=== PATIENT | male | born 1990 | race Caucasian/White ===

== ENCOUNTER 2016-06-11 02:11 | Emergency (ER) | payer SELFPAY ==
[2016-06-11] MEDS ORDERED: NORMAL SALINE 1000 ML 1,000 ML IV ONE (03:28)
[2016-06-11] MEDS ORDERED: ONDANSETRON HCL INJ/PF 4 MG/2 ML SDV IV ONE (03:36)
[2016-06-11] MEDS ORDERED: MECLIZINE HCL 25 MG TABLET PO ONE (03:36)
--- NOTE | 2016-06-11 03:39 | ER Document Report ---
ED General - General Chief Complaint: Vision Problem Stated Complaint: VOMITING AND DOUBLE VISION Time seen by provider: 03:35 Notes: Patient is a 25-year-old male that comes emergency department for chief complaint of feeling lightheaded, unsteady, feeling dizzy, he states that sometimes he feels like he is seeing double, he states that he has had trouble sleeping and not felt well for the past 3 days. States he feels nauseated. He states he felt chilled but denies vomiting, he denies head injury, he denies fever. Patient denies neck pain, abdominal pain, he states he does not have a headache at this time. Past medical history of thoracic kyphosis, states he is on pain management with oxycodone for this, denies any other medications or any other medical history. TRAVEL OUTSIDE OF THE [place] IN LAST 30 DAYS: No - Related Data Allergies/Adverse Reactions: haloperidol [Haloperidol] Allergy (Unknown, Verified 01/25/16 14:35) Past Medical History - General Information source: Patient - Social History Smoking Status: Current Every Day Smoker Chew tobacco use (# tins/day): No Frequency of alcohol use: None Drug Abuse: None Lives with: Family Family History: Reviewed & Not Pertinent Patient has suicidal ideation: No Patient has homicidal ideation: No Renal/ Medical History: Denies: Hx Peritoneal Dialysis Musculoskeltal Medical History: 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 Psychiatric Medical History: Reports: Hx Depression Past Surgical History: Reports: Hx Cholecystectomy, Hx Orthopedic Surgery - hand - Immunizations Immunizations up to date: Yes Hx Diphtheria, Pertussis, Tetanus Vaccination: Yes - 2013 Review of Systems - Review of Systems Constitutional: See HPI EENT: See HPI Cardiovascular: See HPI Respiratory: No symptoms reported Gastrointestinal: No symptoms reported Genitourinary: No symptoms reported Male Genitourinary: No symptoms reported Musculoskeletal: No symptoms reported Skin: No symptoms reported Hematologic/Lymphatic: No symptoms reported Neurological/Psychological: See HPI Physical Exam - Vital signs Vitals: Temp Pulse Resp BP Pulse Ox 97.3 F 80 18 122/70 98 06/11/16 02:18 06/11/16 02:18 06/11/16 02:18 06/11/16 02:18 06/11/16 02:18 Interpretation: Normal - General In distress: None - Patient appears tired with bags under his eyes, otherwise unremarkable and in no distress - HEENT Head: Normocephalic, Atraumatic Eyes: Normal Conjunctiva: Normal Extraocular movements intact: Yes Eyelashes: Normal Pupils: PERRL Nasal: Normal Mouth/Lips: Normal Mucous membranes: Normal Pharynx: Normal Neck: Normal - Respiratory Respiratory status: No respiratory distress Chest status: Nontender Breath sounds: Normal Chest palpation: Normal - Cardiovascular Rhythm: Regular. No: Tachycardia Heart sounds: Normal auscultation, S1 appreciated, S2 appreciated Murmur: No - Abdominal Inspection: Normal Distension: No distension Bowel sounds: Normal Tenderness: Nontender. No: Tender, Guarding Organomegaly: No organomegaly - Back Back: Normal, Nontender. No: Tender - Extremities General upper extremity: Normal inspection, Nontender, Normal color, Normal ROM , Normal temperature General lower extremity: Normal inspection, Nontender, Normal color, Normal ROM , Normal temperature, Normal weight bearing. No: Stehpen's sign - Neurological Neuro grossly intact: Yes Cognition: Normal Orientation: AAOx4 [place]on Coma Scale Eye Opening: Spontaneous [place]on Coma Scale Verbal: Oriented Ober[place] Coma Scale Motor: Obeys Commands Oberon Coma Scale Total: 15 Speech: Normal Cranial nerves: Normal Cerebellar coordination: Normal Motor strength normal: LUE, RUE, LLE, RLE Additional motor exam normals: Equal accountant cost Sensory: Normal - Psychological Associated symptoms: Normal affect, Normal mood - Skin Skin Temperature: Warm Skin Moisture: Dry Skin Color: Normal Course - Re-evaluation Re-evalutation: Patient with no double vision or visual deficits on my examination, has bags under his eyes and appears to be tired. Patient is slightly anxious as well, speaking rapidly and emotionally. Denies SI or HI, states he is just desperate to sleep and he is very tired. Normal neurological exam. Patient hydrated, given medications, afterwards he was asleep, after awaking he states he feels much improved. Patient no longer states he feels difficulty focusing or imbalance. Patient denying any nausea. CBC unremarkable, chemistry attempted to get more than once but unsuccessful, patient now stating he is asymptomatic and wanting to go home. Provide with Vistaril to help him sleep. Advised to follow-up with primary care and return for any concerning symptoms such as headache, visual changes, neurological deficits, etc. Patient states understanding and agreement. - Vital Signs Vital signs: Temp Pulse Resp BP Pulse Ox 97.3 F 66 16 113/77 99 06/11/16 02:18 06/11/16 06:12 06/11/16 06:12 06/11/16 06:12 06/11/16 06:12 - Laboratory Result Diagrams: 06/11/16 04:19 06/11/16 04:19 Laboratory results interpreted by me: 06/11/16 04:19 Seg Neutrophils % 39.7 L Lymphocytes % 47.6 H Discharge - Discharge Clinical Impression: Nausea, Lightheadedness Insomnia Qualifiers: Insomnia type: unspecified Qualified Code(s): G47.00 - Insomnia, unspecified Condition: Stable Disposition: HOME, SELF-CARE Additional Instructions: Your workup does not show any concerning or emergent abnormalities. Take Zofran given if needed for nausea, take the Vistaril to help you sleep. Follow-up with primary care. Return to the emergency department for any concerning symptoms. Prescriptions: Hydroxyzine Pamoate [Vistaril 25 mg Capsule] 1 - 2 cap PO ASDIR PRN #20 capsule PRN Reason:
[2016-06-11] MEDS ORDERED: LORAZEPAM INJ 2 MG/1 ML VIAL IV ONE (04:36)
[2016-06-11 04:50] LABS: ABSOLUTE EOSINOPHILS # (AUTO) 0.2 10^3/uL (0.0-0.6); ABSOLUTE LYMPHOCYTES (AUTO) 3.1 10^3/uL (0.5-4.7); ABSOLUTE MONOCYTES (AUTO) 0.5 10^3/uL (0.1-1.4); ABSOLUTE NEUT (AUTO) 2.6 10^3/uL (1.7-8.2); BASOPHILS % (AUTO) 0.7 % (0-2); EOSINOPHILS % (AUTO) 3.7 % (0-6); HEMATOCRIT 46.3 % (37.9-51.0); HEMOGLOBIN 16.2 g/dL (13.5-17.0); HGB HCT DIFFERENCE 2.3; LYMPHOCYTES % (AUTO) 47.6 % (13-45); MEAN CORPUSCULAR HEMOGLOBIN 30.3 pg (27.0-33.4); MEAN CORPUSCULAR VOLUME 87 fl (80-97); MONOCYTES % (AUTO) 8.3 % (3-13); RED BLOOD COUNT 5.34 10^6/uL (4.35-5.55); RED CELL DISTRIBUTION WIDTH 13.1 % (11.5-14.0); SEGMENTED NEUTROPHILS % (AUTO) 39.7 % (42-78); WHITE BLOOD COUNT 6.4 10^3/uL (4.0-10.5)
[2016-06-11] MEDS ORDERED: ONDANSETRON ODT 4 MG TAB (6 TAB/DSPK) PO PRN (05:54)
[2016-06-11] MEDS ORDERED: HYDROXYZINE PAMOATE 25 MG CAPSULE #4 (ER DISP) PO PRN (05:54)
[2016-06-11 06:13] VITALS: BP 113/77
== END 2016-06-11 06:14 | disposition home or self-care (01) ==
LOC: ER 02:11
DX: R42 Dizziness and giddiness (principal); G47.00 Insomnia, unspecified; R11.0 Nausea; R68.83 Chills (without fever); M40.204 Unspecified kyphosis, thoracic region; F17.200 Nicotine dependence, unspecified, uncomplicated; F41.9 Anxiety disorder, unspecified; Z79.891 Long term (current) use of opiate analgesic; Z88.8 Allergy status to other drugs, medicaments and biological substances
CPT/HCPCS: 99284; 96361; 96374; 96375; 36415; 85025; J3490; J2060; J2405; J7030

== ENCOUNTER 2016-11-26 13:32 | Emergency (ER) | payer SELFPAY ==
[2016-11-26] MEDS ORDERED: LIDOCAINE 1% INJ-PF (10 MG/ML) 30 ML SDV INJ ONE (14:37)
[2016-11-26] MEDS ORDERED: DOXYCYCLINE HYCLATE 100 MG TABLET PO ONE (14:45)
--- NOTE | 2016-11-26 14:45 | ER Document Report ---
ED Skin Rash/Insect Bite/Abscs - General Chief Complaint: Skin Problem Stated Complaint: SORES ON SKIN Time Seen by Provider: 11/26/16 14:19 Mode of Arrival: Ambulatory Information source: Patient Notes: Patient is a 25-year-old male who presents to the ER today for 1 week of redness , swelling to the right arm and left knee. Patient has no history of MRSA but does have a history of staph infection but has never had to have an incision and drainage of an abscess before. He denies any IV drug use, fever, chills, drainage from the area although he did try to "pop them" yesterday on his own. TRAVEL OUTSIDE OF THE [place] IN LAST 30 DAYS: No - Related Data Allergies/Adverse Reactions: haloperidol [Haloperidol] Allergy (Unknown, Verified 11/26/16 13:36) Home Medications: Current Home Medications Hydrocodone/Acetaminophen [[place] 5-325 mg Tablet] 1 tab PO TID 11/26/16 [History ] Past Medical History - General Information source: Patient - Social History Smoking Status: Current Every Day Smoker Chew tobacco use (# tins/day): No Frequency of alcohol use: None Drug Abuse: None Family History: Reviewed & Not Pertinent Renal/ Medical History: Denies: Hx Peritoneal Dialysis Musculoskeltal Medical History: 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 Psychiatric Medical History: Reports: Hx Depression Past Surgical History: Reports: Hx Cholecystectomy, Hx Orthopedic Surgery - R hand - Immunizations Immunizations up to date: Yes Hx Diphtheria, Pertussis, Tetanus Vaccination: Yes - 2013 Review of Systems - Review of Systems Constitutional: No symptoms reported EENT: No symptoms reported Cardiovascular: No symptoms reported Respiratory: No symptoms reported Gastrointestinal: No symptoms reported Genitourinary: No symptoms reported Male Genitourinary: No symptoms reported Musculoskeletal: No symptoms reported Skin: See HPI Hematologic/Lymphatic: No symptoms reported Neurological/Psychological: No symptoms reported Physical Exam - Vital signs Vitals: Temp Pulse Resp BP Pulse Ox 97.8 F 75 18 140/79 H 100 11/26/16 13:36 11/26/16 13:36 11/26/16 13:36 11/26/16 13:36 11/26/16 13:36 - Notes Notes: PHYSICAL EXAMINATION: GENERAL: Well-appearing and in no acute distress. HEAD: Atraumatic, normocephalic. EYES: Pupils equal round and reactive to light, extraocular movements intact, sclera anicteric, conjunctiva are normal. NECK: Normal range of motion, supple without lymphadenopathy LUNGS: CTAB and equal. No wheezes rales or rhonchi. HEART: Regular rate and rhythm without murmurs ABDOMEN: Soft, no tenderness. No guarding, no rebound BACK: no vertebral tenderness, normal ROM GI/: no CVA tenderness EXTREMITIES: Normal range of motion, no pitting edema. No cyanosis. NEUROLOGICAL: Cranial nerves grossly intact. Normal sensory/motor exams. PSYCH: Normal mood, normal affect. SKIN: Warm, Dry, normal turgor, erythema and edema to anterior left knee over patella, tender, no fluctuance or induration, approximately 3cm in diameter, right forearm with 1cm in diameter area of erythema with fluctuance and tenderness Course - Vital Signs Vital signs: Temp Pulse Resp BP Pulse Ox 97.8 F 75 18 140/79 H 100 11/26/16 13:36 11/26/16 13:36 11/26/16 13:36 11/26/16 13:36 11/26/16 13:36 Procedures - Incision and Drainage Left Knee Time completed: 15:40 Type: Simple Anesthetic type: 1% Lidocaine mL's of anesthetic: 3 Blade size: 11 I&D procedure: Betadine prep applied Incision Method: Incision made by scalpel Amount/type of drainage: blood Adult Front & Back picture: 1 - abscess Right Distal Arm Time completed: 15:41 Type: Simple Anesthetic type: 1% Lidocaine mL's of anesthetic: 2 Blade size: 11 I&D procedure: Betadine prep applied Incision Method: Incision made by scalpel Amount/type of drainage: blood and pus Adult Front & Back picture: 1 - abscess Discharge - Discharge Clinical Impression: Abscess Condition: Stable Disposition: HOME, SELF-CARE Instructions: Post Incision and Drainage, Trimethoprim-Sulfa ([facility]), Abscess ( [facility]) Additional Instructions: Please finish all of your antibiotics. Return immediately for any new or worsening symptoms. Follow up with primary care provider, call tomorrow to make followup appointment. Prescriptions: Sulfamethoxazole/Trimethoprim [Bactrim Ds Tablet] 1 each PO BID #20 tablet Forms: Return to Work
[2016-11-26] MEDS ORDERED: IBUPROFEN 800 MG TABLET PO ONE (15:42)
[2016-11-26 16:10] VITALS: BP 127/73
== END 2016-11-26 16:10 | disposition home or self-care (01) ==
LOC: ER 13:32
PROC: 0H9DXZZ Drainage of Right Lower Arm Skin, External Approach (ICD-10-PCS; principal; 2016-11-26)
PROC: 0H9LXZZ Drainage of Left Lower Leg Skin, External Approach (ICD-10-PCS; 2016-11-26)
DX: L02.413 Cutaneous abscess of right upper limb (principal); L02.415 Cutaneous abscess of right lower limb; F17.200 Nicotine dependence, unspecified, uncomplicated; Z90.49 Acquired absence of other specified parts of digestive tract
CPT/HCPCS: 99283; 87070; 87205; 87075; 87077; 87186; 10061; J3490

== ENCOUNTER 2017-04-27 00:42 | Emergency (ER) | payer SELFPAY ==
--- NOTE | 2017-04-27 02:10 | ER Document Report ---
ED Medical Screen (RME) - General Chief Complaint: Dizziness Stated Complaint: SYNCOPAL EPISODE Time Seen by Provider: 04/27/17 02:06 Mode of Arrival: Medic Information source: Patient Notes: 26-year-old male presents to ED for possible seizures at his friend's house tonight. He states he was at his friend's house and started feeling weird lightheaded and dizzy. He states he started having ringing in his ears and feeling hot and then he states he fell down. His friends told him he was shaking and his eyes were rolled up weird in his head. He said the friends told him that his blood pressure was low and his pulse was low so they called 911. When EMS got there they first set of vitals was 88/40 with a pulse of 73 and pulse ox of 100. States while he was in the waiting room he started feeling weird again but has not fallen down or passed out again. He states he smoked some pot tonight but has not had any alcohol tonight. He denies any other drugs tonight. I have greeted and performed a rapid initial assessment of this patient. A comprehensive ED assessment and evaluation of the patient, analysis of test results and completion of medical decision making process will be conducted by an additional ED providers. TRAVEL OUTSIDE OF THE [place] IN LAST 30 DAYS: No - Related Data Allergies/Adverse Reactions: haloperidol [Haloperidol] Allergy (Unknown, Verified 11/26/16 13:36) Past Medical History Renal/ Medical History: Denies: Hx Peritoneal Dialysis Musculoskeltal Medical History: 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 Psychiatric Medical History: Reports: Hx Depression Past Surgical History: Reports: Hx Cholecystectomy, Hx Orthopedic Surgery - R hand - Immunizations Immunizations up to date: Yes Hx Diphtheria, Pertussis, Tetanus Vaccination: Yes - 2013 Physical Exam - Vital signs Vitals: Temp Pulse Resp BP Pulse Ox 98.3 F 78 18 109/61 100 04/27/17 01:13 04/27/17 01:13 04/27/17 01:13 04/27/17 01:13 04/27/17 01:13 Course - Vital Signs Vital signs: Temp Pulse Resp BP Pulse Ox 98.3 F 78 18 109/61 100 04/27/17 01:13 04/27/17 01:13 04/27/17 01:13 04/27/17 01:13 04/27/17 01:13
[2017-04-27 02:53] LABS: ABSOLUTE BASOPHILS # (AUTO) 0.1 10^3/uL (0.0-0.2); ABSOLUTE LYMPHOCYTES (AUTO) 2.6 10^3/uL (0.5-4.7); ABSOLUTE MONOCYTES (AUTO) 0.6 10^3/uL (0.1-1.4); ABSOLUTE NEUT (AUTO) 11.7 10^3/uL (1.7-8.2); BASOPHILS % (AUTO) 0.6 % (0-2); EOSINOPHILS % (AUTO) 0.3 % (0-6); HEMATOCRIT 44.3 % (37.9-51.0); HEMOGLOBIN 15.2 g/dL (13.5-17.0); LYMPHOCYTES % (AUTO) 17.2 % (13-45); MEAN CORPUSCULAR HEMOGLOBIN 28.7 pg (27.0-33.4); MEAN CORPUSCULAR HGB CONC 34.2 g/dL (32.0-36.0); MEAN CORPUSCULAR VOLUME 84 fl (80-97); MONOCYTES % (AUTO) 4.3 % (3-13); PLATELET COUNT 391 10^3/uL (150-450); RED BLOOD COUNT 5.27 10^6/uL (4.35-5.55); RED CELL DISTRIBUTION WIDTH 13.9 % (11.5-14.0); SEGMENTED NEUTROPHILS % (AUTO) 77.6 % (42-78); TOTAL CELLS COUNTED % (AUTO) 100 %
[2017-04-27 03:02] LABS: ALANINE AMINOTRANSFERASE 22 U/L (21-72); ALBUMIN 4.8 g/dL (3.5-5.0); ALKALINE PHOSPHATASE 81 U/L (38-126); ANION GAP 12 (5-19); ASPARTATE AMINO TRANSFERASE 14 U/L (17-59); BILIRUBIN,DIRECT 0.4 mg/dL (0.0-0.4); BILIRUBIN,TOTAL 0.7 mg/dL (0.2-1.3); BLOOD UREA NITROGEN 14 mg/dL (7-20); CALCIUM 10.4 mg/dL (8.4-10.2); CARBON DIOXIDE 23 mmol/L (22-30); CHLORIDE 106 mmol/L (98-107); GLUCOSE 90 mg/dL (75-110); POTASSIUM 3.7 mmol/L (3.6-5.0); SODIUM 141.2 mmol/L (137-145); TOTAL PROTEIN 8.5 g/dL (6.3-8.2)
[2017-04-27 03:39] LABS: APPEARANCE,URINE CLOUDY; BILIRUBIN,URINE NEGATIVE (NEGATIVE); COLOR,URINE AMBER; GLUCOSE, URINE NEGATIVE (NEGATIVE); KETONES,URINE TRACE mg/dL (NEGATIVE); LEUKOCYTE ESTERASE,URINE NEGATIVE (NEGATIVE); NITRITE,URINE NEGATIVE (NEGATIVE); PROTEIN,URINE 100 mg/dL (NEGATIVE); URINE SPECIFIC GRAVITY 1.026
[2017-04-27 03:59] LABS: URINE AMPHETAMINES SCREEN NEGATIVE; URINE BARBITURATES SCREEN NEGATIVE; URINE BENZODIAZEPINES SCREEN UNCONFIRMED POSITIVE; URINE COCAINE SCREEN UNCONFIRMED POSITIVE; URINE MARIJUANA (THC) SCREEN UNCONFIRMED POSITIVE; URINE METHADONE SCREEN NEGATIVE; URINE PHENCYCLIDINE SCREEN NEGATIVE
--- NOTE | 2017-04-27 04:08 | RADIOLOGY REPORT (SQ) ---
EXAM DESCRIPTION: CT HEAD WITHOUT CLINICAL HISTORY: Fell,seizures COMPARISON: None available TECHNIQUE: Axial CT of the head obtained from the skull apex to the skull base without contrast. FINDINGS: No acute intracranial hemorrhage identified. No mass, mass effect, shift of the midline, abnormal extra-axial fluid collection or CT evidence of acute ischemic change identified. The ventricular system is unremarkable. No acute abnormalities of the supratentorial white matter, basal ganglia, cerebellum, or brainstem. The visualized paranasal sinuses and the mastoids are clear. No skull fracture identified. Visualized orbits and globes are unremarkable. DLP:1421.41 mGy-cm IMPRESSION: 1. No acute intracranial abnormality identified. This exam was performed according to our departmental dose-optimization program, which includes automated exposure control, adjustment of the mA and/or kV according to patient size and/or use of iterative reconstruction technique.
--- NOTE | 2017-04-27 04:10 | RADIOLOGY REPORT (SQ) ---
EXAM DESCRIPTION: L SPINE WHOLE CLINICAL HISTORY: Fell with pain to his lower back COMPARISON: None. FINDINGS: 5 views of the lumbar spine. 5 nonrib-bearing lumbar vertebrae. Prior cholecystectomy. Pedicles identified throughout. No abnormalities of visualized sacrum. No cortical step-offs. No subluxation. Vertebral body height and intervertebral disc height preserved. Facets are appropriately aligned. Spinous processes appear intact. IMPRESSION: 1. No acute abnormality of the lumbar spine by plain film criteria.
[2017-04-27 07:00] VITALS: BP 143/90
--- NOTE | 2017-04-27 07:02 | ER Document Report ---
ED General - General Chief Complaint: Dizziness Stated Complaint: SYNCOPAL EPISODE Time Seen by Provider: 04/27/17 02:06 Mode of Arrival: Medic Notes: 6 year male presents with syncope. Smoking pot with friends, felt dizzy ringing in his ears a little bit black and he fainted. He may have had a seizure per his friends although it is unclear if this was in fact myoclonic jerking. This occurred suddenly and is now resolved. He denies other drugs however his your urine tox is positive for cocaine. Denies alcohol. Rapid medical evaluation done studies were ordered. TRAVEL OUTSIDE OF THE [place] IN LAST 30 DAYS: No - Related Data Allergies/Adverse Reactions: haloperidol [Haloperidol] Allergy (Unknown, Verified 11/26/16 13:36) Past Medical History - General Information source: Patient - Social History Smoking Status: Current Every Day Smoker Chew tobacco use (# tins/day): No Smoking Education Provided: Yes - The patient ED visit today was directly related to their abuse of tobacco. Frequency of alcohol use: None Drug Abuse: Marijuana Family History: Reviewed & Not Pertinent Patient has suicidal ideation: No Patient has homicidal ideation: No Renal/ Medical History: Denies: Hx Peritoneal Dialysis Musculoskeltal Medical History: 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 Psychiatric Medical History: Reports: Hx Depression Past Surgical History: Reports: Hx Cholecystectomy, Hx Orthopedic Surgery - R hand - Immunizations Immunizations up to date: Yes Hx Diphtheria, Pertussis, Tetanus Vaccination: Yes - 2013 Review of Systems - Review of Systems Notes: REVIEW OF SYSTEMS GEN: Denies fever, chills, weight loss ENT: Denies sore throat, nasal discharge, ear pain EYES: Denies blurry vision, eye pain, discharge CV: Denies chest pain, palpitations, edema RESP: Denies cough, shortness of breath, wheezing GI: Denies abdominal pain, nausea, vomiting, diarrhea MSK: Denies joint pain/swelling, edema, SKIN: Denies rash, skin lesions LYMPH: Denies swollen glands/lymph nodes NEURO: Loss of consciousness. Denies headache, focal weakness or numbness, dizziness PSYCH: Denies depression, suicidal or homicidal ideation PHYSICAL EXAMINATION General: No acute distress, well-nourished Head: Atraumatic, normocephalic ENT: Mouth normal, oropharynx moist, no exudates or tonsillar enlargement on trauma. Eyes: Conjunctiva normal, pupils equal, lids normal Neck: No JVD, supple, no guarding CVS: Normal rate, regular rhythm, no murmurs Resp: No resp distress, equal and normal breath sounds bilaterally GI: Nondistended, soft, no tenderness to palpation, no rebound or guarding Ext: No deformities, no edema, normal range of motion in upper and lower ext Back: No CVA or midline TTP Skin: No rash, warm Lymphatic: No lymphadeopathy noted Neuro: Awake, alert. Face symmetric. GCS 15. Possible tongue tremor. Physical Exam - Vital signs Vitals: Temp Pulse Resp BP Pulse Ox 98.3 F 78 18 109/61 100 04/27/17 01:13 04/27/17 01:13 04/27/17 01:13 04/27/17 01:13 04/27/17 01:13 Course - Re-evaluation Re-evalutation: 04/27/17 07:04 Young male presents with syncope, sounds vagal based on vital signs. He has been waiting in the waiting room for hours and is now normal. Vitals are fine. Exam does not reveal cause of syncope. Doubt seizure based on story and exam lacking tongue trauma, probably myoclonus. Head CT lumbar x-rays and labs are normal. EKG shows normal intervals and nonspecific inverted T waves however the patient has no chest pain or shortness of breath. He will be referred to [facility] to follow-up and I recommend he get a repeat EKG. Cocaine positive in the urine, counseled on smoking and drug cessation. I have discussed with the patient there likely diagnosis, aftercare plan, follow-up plans and my usual and customary return precautions. They verbalized understanding of this. - Vital Signs Vital signs: Temp Pulse Resp BP Pulse Ox 98.5 F 85 18 143/90 H 99 04/27/17 06:59 04/27/17 06:59 04/27/17 06:59 04/27/17 06:59 04/27/17 06:59 - Laboratory Result Diagrams: 04/27/17 02:30 04/27/17 02:30 Laboratory results interpreted by me: 04/27/17 04/27/17 04/27/17 02:30 02:30 02:30 WBC 15.0 H Absolute Neutrophils 11.7 H Calcium 10.4 H AST 14 L Total Protein 8.5 H Urine Protein 100 H Urine Ketones TRACE H Urine Urobilinogen 2.0 H - Diagnostic Test Radiology reviewed: Image reviewed, Reports reviewed - EKG Interpretation by Me EKG shows normal: Sinus rhythm Rate: Normal When compared to previous EKG there are: Changes noted - Nonspecific change inverted T-wave in V3. No other ST segment change Discharge - Discharge Clinical Impression: Syncope and collapse, Polysubstance abuse Condition: Good Disposition: HOME, SELF-CARE Instructions: Dizziness ([facility]) Forms: Return to Work Referrals: [facility] [Provider Group] - Follow up as needed
[2017-04-27] MEDS ORDERED: ACETAMINOPHEN 325 MG TABLET PO ONE (07:05)
--- NOTE | 2017-04-27 10:04 | EKG REPORT ---
SEVERITY:- ABNORMAL ECG - SINUS RHYTHM NONSPECIFIC T ABNORMALITIES, ANT-LAT LEADS : Confirmed by: Zita Gee 27-Apr-2017 10:03:34
== END 2017-04-27 07:10 | disposition home or self-care (01) ==
LOC: ER 00:42
DX: R55 Syncope and collapse (principal); F12.10 Cannabis abuse, uncomplicated; F17.200 Nicotine dependence, unspecified, uncomplicated; Z88.8 Allergy status to other drugs, medicaments and biological substances; R82.5 Elevated urine levels of drugs, medicaments and biological substances
CPT/HCPCS: 36415; 70450; 72110; 80053; 80307; 81001; 85025; 93005; 93010; 99285

== ENCOUNTER 2017-09-25 02:16 | Emergency (ER) | payer SELFPAY ==
[2017-09-25 02:27] VITALS: BP 135/78
== END 2017-09-25 04:30 | disposition left against medical advice (07) ==
LOC: ER 02:16
DX: Z53.21 Procedure and treatment not carried out due to patient leaving prior to being seen by health care provider (principal)

== ENCOUNTER 2017-09-25 18:29 | Inpatient (IN) | payer SELFPAY ==
--- NOTE | 2017-09-25 18:47 | ER Document Report ---
ED Medical Screen (RME) - General Chief Complaint: Abscess Stated Complaint: POSSIBLE ABCESS Time Seen by Provider: 09/25/17 18:43 Notes: 26 yo male presents with 3 days of increased redness and swelling of his right lateral neck. PE: 6 cm indurated area of right lateral neck with surrounding erythema I have greeted and performed a rapid initial assessment of this patient. A comprehensive ED assessment and evaluation of the patient, analysis of test results and completion of the medical decision making process will be conducted by additional ED providers. TRAVEL OUTSIDE OF THE [place] IN LAST 30 DAYS: No - Related Data Allergies/Adverse Reactions: haloperidol [Haloperidol] Allergy (Unknown, Verified 09/25/17 18:39) Past Medical History - Past Medical History Cardiac Medical History: Pulmonary Medical History: Neurological Medical History: Renal/ Medical History: Denies: Hx Peritoneal Dialysis Musculoskeltal Medical History: 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 Psychiatric Medical History: Reports: Hx Depression Past Surgical History: Reports: Hx Cholecystectomy, Hx Orthopedic Surgery - R hand - Immunizations Immunizations up to date: Yes Hx Diphtheria, Pertussis, Tetanus Vaccination: Yes - 2013 Physical Exam - Vital signs Vitals: Temp Pulse Resp BP Pulse Ox 97.8 F 93 18 137/62 H 100 09/25/17 18:34 09/25/17 18:34 09/25/17 18:34 09/25/17 18:34 09/25/17 18:34 Course - Vital Signs Vital signs: Temp Pulse Resp BP Pulse Ox 97.8 F 93 18 137/62 H 100 09/25/17 18:34 09/25/17 18:34 09/25/17 18:34 09/25/17 18:34 09/25/17 18:34 Doctor's Discharge - Discharge Referrals: MICHAEL ALSTON MD [Primary Care Provider] - Follow up as needed
[2017-09-25] MEDS ORDERED: NORMAL SALINE 1000 ML 1,000 ML IV PRN (19:21)
[2017-09-25] MEDS ORDERED: CEFTRIAXONE 2 GM/D5W RTU 2 GM/50 ML RTUPB IV ONE (19:21)
[2017-09-25] MEDS ORDERED: NORMAL SALINE 1000 ML 1,000 ML IV ONE (19:21)
--- NOTE | 2017-09-25 19:26 | ER Document Report ---
ED Skin Rash/Insect Bite/Abscs - General Chief Complaint: Abscess Stated Complaint: POSSIBLE ABCESS Time Seen by Provider: 09/25/17 18:43 Mode of Arrival: Ambulatory Information source: Patient Notes: Chief complaint: Right neck abscess History of complain:( obtained from----patient) 26 years old male presents today with right neck swelling noted a few days ago which gradually increased in size and the redness started to spread had some chills and fever. And painful on moving the neck. He cannot recollect how he guarded he cannot even recollect whether he was bitten by any insects. No history of MRSA. Nondiabetic Onset: As above gradual Duration: Last few days Severity: Moderate to severe Quality: Sharp Context: Unknown Exacerbating factor and relieving factors: Change of position of the neck REVIEW OF SYSTEMS: CONSTITUTIONAL : Denies fever, chills, or sweats. Denies recent illness. EENT: Denies eye, ear, throat, or mouth pain or symptoms. Denies nasal or sinus congestion or discharge. Denies throat, tongue, or mouth swelling or difficulty swallowing. CARDIOVASCULAR: Denies chest pain. Denies palpitations or racing or irregular heart beat. Denies ankle edema. RESPIRATORY: Denies cough, cold, or chest congestion. Denies shortness of breath, difficulty breathing, or wheezing. GASTROINTESTINAL: Denies distention. Denies nausea, vomiting, or diarrhea. Denies blood in vomitus, stools, or per rectum. Denies black, tarry stools. Denies constipation. GENITOURINARY: Denies difficulty urinating, painful urination, burning, frequency, blood in urine, or discharge. FEMALE GENITOURINARY: Denies vaginal bleeding, heavy or abnormal periods, irregular periods. Denies vaginal discharge or odor. MUSCULOSKELETAL: Denies back or neck pain or stiffness. Denies joint pain or swelling. SKIN: Denies rash, lesions or sores. HEMATOLOGIC : Denies easy bruising or bleeding. LYMPHATIC: Denies swollen, enlarged glands. NEUROLOGICAL: Denies confusion or altered mental status. Denies passing out or loss of consciousness. Denies dizziness or lightheadedness. Denies headache. Denies weakness or paralysis or loss of use of either side. Denies problems with gait or speech. Denies sensory loss, numbness, or tingling. Denies seizures. PSYCHIATRIC: Denies anxiety or stress. Denies depression, suicidal ideation, or homicidal ideation. ALL OTHER SYSTEMS REVIEWED AND NEGATIVE. PHYSICAL EXAMINATION: GENERAL: Well-appearing, well-nourished and in no acute distress. HEAD: Atraumatic, normocephalic. EYES: Pupils equal round and reactive to light, extraocular movements intact, conjunctiva are normal. ENT: Nares patent, oropharynx clear without exudates. Moist mucous membranes. NECK: Normal range of motion, supple without lymphadenopathy LUNGS: Breath sounds clear to auscultation bilaterally and equal. No wheezes rales or rhonchi. HEART: Regular rate and rhythm without murmurs ABDOMEN: Soft, nontender, nondistended abdomen. No guarding, no rebound. No masses appreciated. Examination of genitals-deferred Musculoskeletal: Normal range of motion, no pitting or edema. No cyanosis. NEUROLOGICAL: Cranial nerves grossly intact. Normal speech, normal gait. Normal sensory, motor exams PSYCH: Normal mood, normal affect. SKIN: Skin over the right side of the neck and upper part of the chest has diffuse erythema which is warm and tender to touch. At the root of the neck just above the clavicular. 2 fluctuant masses were noted each 1 of them 3 cm circumferential with a gap of 2 cm. Which is warm and tender and fluctuant. Dictation was performed using [employer] voice recognition software TRAVEL OUTSIDE OF THE [place] IN LAST 30 DAYS: No - Related Data Allergies/Adverse Reactions: haloperidol [Haloperidol] Allergy (Unknown, Verified 09/25/17 18:39) Past Medical History - General Information source: Patient - Social History Smoking Status: Current Every Day Smoker Chew tobacco use (# tins/day): No Frequency of alcohol use: None Drug Abuse: None Family History: Reviewed & Not Pertinent Patient has suicidal ideation: No Patient has homicidal ideation: No - Past Medical History Cardiac Medical History: Pulmonary Medical History: EENT Medical History: Denies: None, Eyes, Ears, Nose, Throat, Other Neurological Medical History: Denies: None, Hx Cerebrovascular Accident, Hx Migraine, Hx Seizures, Other Endocrine Medical History: Denies: None, Hx Diabetes Mellitus Type 1, Hx Diabetes Mellitus Type 2, Hx Graves' Disease, Hx Hyperthyroidism, Hx Hypothyroidism, Other Malignancy Medical History: Denies None, Denies Hx Bone Cancer, Denies Hx Brain Cancer, Denies Hx Colorectal Cancer, Denies Hx Leukemia, Denies Hx Liver Cancer , Denies Hx Lung Cancer, Denies Hx Lymphoma, Denies Hx Pancreatic Cancer, Denies Hx Prostate Cancer, Denies Hx Renal (Kidney) Cancer, Denies Hx Skin Cancer, Denies Hx Testicular Cancer, Denies Other GI Medical History: Denies: None, Hx Cirrhosis, Hx Crohn's Disease, Hx Diverticulitis, Hx Gastritis, Hx Gastroesophageal Reflux Disease, Hx Hepatitis, Hx Hiatal Hernia, Hx Irritable Bowel, Hx Liver Failure, Hx Pancreatitis, Hx Ulcer, Hx Ulcerative Colitis, Hx Colonoscopy, Hx Endoscopic Retrograde Cholangio , Hx Endoscopy, Other Musculoskeltal Medical History: Denies None, Denies Hx Arthritis, Denies Hx Fibromyalgia, Denies Hx Gout, Denies Hx Multiple Sclerosis, Denies Hx Muscular Dystrophy, Denies Hx Muscle Spasm, Denies Hx Muscle Weakness, 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, Denies Hx Musculoskeletal Trauma, Denies Hx Myositis, Denies Hx Restless Leg Syndrome, Denies Other Skin Medical History: Denies None, Denies Hx Cellulitis, Denies Hx Eczema, Denies Hx MRSA, Denies Hx Psoriasis, Denies Other Psychiatric Medical History: Reports: Hx Depression Traumatic Medical History: Denies: None, Hx Fractures, Hx Gunshot Wound, Hx Liver Laceration, Hx Pneumothorax, Hx Spine Fracture, Hx Spleen Laceration/ Rupture, Hx Traumatic Brain Injury, Other Past Surgical History: Reports: Hx Cholecystectomy, Hx Orthopedic Surgery - R hand - Immunizations Immunizations up to date: Yes Hx Diphtheria, Pertussis, Tetanus Vaccination: Yes - 2013 Review of Systems - Review of Systems Notes: Dictated -: Yes ROS unobtainable due to patient's medical condition Physical Exam - Vital signs Vitals: Temp Pulse Resp BP Pulse Ox 97.8 F 93 18 137/62 H 100 09/25/17 18:34 09/25/17 18:34 09/25/17 18:34 09/25/17 18:34 09/25/17 18:34 - Notes Notes: Dictated Course - Re-evaluation Re-evalutation: 09/26/17 00:49 Consulted with surgeon container maker - Vital Signs Vital signs: Temp Pulse Resp BP Pulse Ox 97.8 F 93 18 137/62 H 100 09/25/17 18:34 09/25/17 18:34 09/25/17 18:34 09/25/17 18:34 09/25/17 18:34 - Laboratory Result Diagrams: 09/25/17 21:00 Laboratory results interpreted by me: 09/25/17 21:00 WBC 11.3 H Absolute Neutrophils 8.5 H Discharge - Discharge Clinical Impression: Cellulitis and abscess of neck Condition: Fair Disposition: ADMITTED INPATIENT Admitting Provider: Surgicalist Unit Admitted: Surgical Floor
[2017-09-25 21:12] LABS: ABSOLUTE BASOPHILS # (AUTO) 0.1 10^3/uL (0.0-0.2); ABSOLUTE EOSINOPHILS # (AUTO) 0.1 10^3/uL (0.0-0.6); ABSOLUTE LYMPHOCYTES (AUTO) 1.8 10^3/uL (0.5-4.7); ABSOLUTE MONOCYTES (AUTO) 0.8 10^3/uL (0.1-1.4); ABSOLUTE NEUT (AUTO) 8.5 10^3/uL (1.7-8.2); BASOPHILS % (AUTO) 0.6 % (0-2); EOSINOPHILS % (AUTO) 0.9 % (0-6); HEMATOCRIT 42.3 % (37.9-51.0); HEMOGLOBIN 14.7 g/dL (13.5-17.0); LYMPHOCYTES % (AUTO) 15.6 % (13-45); MEAN CORPUSCULAR HEMOGLOBIN 30.2 pg (27.0-33.4); MEAN CORPUSCULAR HGB CONC 34.8 g/dL (32.0-36.0); MEAN CORPUSCULAR VOLUME 87 fl (80-97); MONOCYTES % (AUTO) 7.5 % (3-13); PLATELET COUNT 288 10^3/uL (150-450); RED BLOOD COUNT 4.88 10^6/uL (4.35-5.55); SEGMENTED NEUTROPHILS % (AUTO) 75.4 % (42-78); TOTAL CELLS COUNTED % (AUTO) 100 %; WHITE BLOOD COUNT 11.3 10^3/uL (4.0-10.5)
[2017-09-25] MEDS ORDERED: HYDROCODONE/ACETAMINOPHEN 5-325 MG TABLET PO ONE (22:28)
[2017-09-25] MEDS ORDERED: LIDOCAINE 1%/EPINEPHRINE INJ 20 ML VIAL INJ ONE (22:51)
[2017-09-25] MEDS ORDERED: DEXTROSE 5%-LACTATED RINGERS 1,000 ML IV PRN (23:21)
[2017-09-25] MEDS ORDERED: ONDANSETRON 4 MG TAB.RAPDIS PO PRN (23:21)
[2017-09-25] MEDS ORDERED: VANCOMYCIN HCL 0 MG in DEXTROSE 5%-WATER 250 ML IV NR (23:30)
--- NOTE | 2017-09-25 23:41 | PDOC H&P ---
History of Present Illness Patient complains of: Swelling, pain, erythema of the right neck History of Present Illness: NAVEEN MCCORMICK is a 26 year old male with a one-week history of swelling, pain , and erythema of the right neck. The patient reports that the swelling worsened over the last 3-4 days. The pain became so severe that he could not take it anymore, and presented to the hospital for evaluation. His pain is sharp and stabbing. At worst it is 10 out of 10. The pain does not radiate. Nothing makes the pain better. Palpation and movement make the pain worse. The patient denies chest pain, shortness of breath, nausea, vomiting, melena, hematochezia, hematemesis, dizziness, orthostasis. He does report subjective fevers and chills. Past Medical History Cardiac Medical History: Pulmonary Medical History: EENT Medical History: Denies: None, Eyes, Ears, Nose, Throat Neurological Medical History: Denies: None, Migraine, Seizures, Other Endocrine Medical History: Denies: None, Diabetes Mellitus Type 1, Diabetes Mellitus Type 2, Hyperthyroidism, Hypothyroidism, Other Malignancy Medical History: Denies: None, Bone Cancer, Brain Cancer, Colorectal Cancer, Leukemia, Liver Cancer, Lung Cancer, Lymphoma, Pancreatic Cancer, Renal (Kidney) Cancer, Skin Cancer, Other GI Medical History: Denies: None, Cirrhosis, Crohn's Disease, Diverticulitis, Gastroesophageal Reflux Disease, Hepatitis, Hiatal Hernia, Ulcerative Colitis, Other Musculoskeltal Medical History: Denies: None, Arthritis, Fibromyalgia, Gout, Other Skin Medical History: Denies: None, Eczema, Psoriasis, Other Psychiatric Medical History: Reports: Depression Traumatic Medical History: Denies: None, Gunshot Wound, Pneumothorax, Traumatic Brain Injury, Other Hematology: Denies: Anemia Past Surgical History Past Surgical History: Reports: Cholecystectomy, Orthopedic Surgery - R hand Social History Information Source: Patient Smoking Status: Current Every Day Smoker Frequency of Alcohol Use: None Hx Recreational Drug Use: No Hx Prescription Drug Abuse: No Family History Family History: Reviewed & Not Pertinent Parental Family History Reviewed: Yes Children Family History Reviewed: Yes Sibling(s) Family History Reviewed.: Yes Medication/Allergy Home Medications: Hydrocodone/Acetaminophen [Nutley 5-325 mg Tablet] 1 tab PO TID 11/26/16 Sulfamethoxazole/Trimethoprim [Bactrim Ds Tablet] 1 each PO BID #20 tablet 11/26 Allergies/Adverse Reactions: haloperidol [Haloperidol] Allergy (Unknown, Verified 09/25/17 18:39) Physical Exam Vital Signs: Temp Pulse Resp BP Pulse Ox 97.8 F 93 18 137/62 H 100 09/25/17 18:34 09/25/17 18:34 09/25/17 18:34 09/25/17 18:34 09/25/17 18:34 Intake & Output 09/24/17 09/25/17 09/26/17 06:59 06:59 06:59 Weight 74.7 kg General appearance: PRESENT: no acute distress Head exam: PRESENT: atraumatic, normocephalic Eye exam: PRESENT: EOMI, PERRLA. ABSENT: scleral icterus Neck exam: PRESENT: tenderness - Right neck. ABSENT: thyromegaly, tracheal deviation Respiratory exam: PRESENT: clear to auscultation shahab, unlabored. ABSENT: chest wall tenderness, wheezes Cardiovascular exam: PRESENT: RRR Pulses: PRESENT: normal radial pulses Vascular exam: PRESENT: normal capillary refill. ABSENT: pallor GI/Abdominal exam: PRESENT: soft. ABSENT: distended, guarding, tenderness Rectal exam: PRESENT: deferred Extremities exam: ABSENT: clubbing, tenderness Musculoskeletal exam: ABSENT: deformity Neurological exam: PRESENT: alert, awake, oriented to person, oriented to place , oriented to time, oriented to situation, CN II-XII grossly intact. ABSENT: motor sensory deficit Psychiatric exam: PRESENT: anxious. ABSENT: agitated, depressed Skin exam: ABSENT: cyanosis, erythema, jaundice Results Laboratory Results: 09/25/17 21:00 09/25/17 21:00 WBC 11.3 H RBC 4.88 Hgb 14.7 Hct 42.3 MCV 87 MCH 30.2 MCHC 34.8 RDW 13.0 Plt Count 288 Seg Neutrophils % 75.4 Lymphocytes % 15.6 Monocytes % 7.5 Eosinophils % 0.9 Basophils % 0.6 Absolute Neutrophils 8.5 H Absolute Lymphocytes 1.8 Absolute Monocytes 0.8 Absolute Eosinophils 0.1 Absolute Basophils 0.1 Assessment & Plan - Diagnosis (1) Neck abscess Is this a current diagnosis for this admission?: Yes - Plan Summary Plan Summary: This is a 26-year-old male with a cutaneous abscess of the right neck. There is fluctuance present and surrounding erythema. The abscess appears to be relatively superficial. The patient does not know what caused the abscess. He denies any recent bug bites, skin breaks, or wounds to the neck. I have offered the patient bedside incision and drainage, and he has agreed. Risks/ benefits discussed, informed consent obtained, and all questions answered.
[2017-09-25] MEDS ORDERED: VANCOMYCIN HCL INJ 500 MG VIAL IV PRN (23:48)
[2017-09-25] MEDS ORDERED: VANCOMYCIN HCL INJ 1000 MG VIAL IV PRN (23:48)
--- NOTE | 2017-09-25 23:50 | Operative Report ---
Nonrecallable Operative Report DATE OF SURGERY: 09/25/17 PREOPERATIVE DIAGNOSIS: Right neck abscess POSTOPERATIVE DIAGNOSIS: Right neck abscess, extending into the deep tissues of the neck OPERATION: Incision and drainage of a right neck abscess SURGEON: GARCIA MOORE ANESTHESIA: Local COMPLICATIONS: Large amount of purulent material emanating from the deep spaces of the neck. Unable to open the neck further due to patient intolerance. ESTIMATED BLOOD LOSS: Minimal PROCEDURE: Procedure in detail: After informed consent was obtained from the patient, he was laid in the semi-upright position in the emergency department. The area of the right neck was prepped and draped in a normal sterile fashion. 1% lidocaine with epinephrine was used to infiltrate the skin of the right neck. An incision was created over the fluctuant area in the right neck. 2 separate smaller abscess cavities were identified. These were opened and cleaned. The patient tolerated this well. Purulent material was found to be emanating from a deeper area anterior and inferior to the skin incision. When this area was probed, the patient had a large amount of pain and could not tolerate any further intervention. The wound was irrigated and a dressing was placed. All sponge, instrument, and needle counts were correct 2. Condition: Fair.
[2017-09-26] MEDS ORDERED: VANCOMYCIN HCL 1,500 MG in DEXTROSE 5%-WATER 250 ML IV ONE ×2
[2017-09-26] MEDS: MORPHINE SULFATE 10 MG/ML INJ IV PRN ×2 (02:35→07:24)
[2017-09-26] MEDS: KETOROLAC TROMETHAMINE INJ/PF 30 MG/1 ML SDV IV SCH ×3 (05:51→21:24)
[2017-09-26 06:27] LABS: ABSOLUTE BASOPHILS # (AUTO) 0.1 10^3/uL (0.0-0.2); ABSOLUTE EOSINOPHILS # (AUTO) 0.2 10^3/uL (0.0-0.6); ABSOLUTE LYMPHOCYTES (AUTO) 2.6 10^3/uL (0.5-4.7); ABSOLUTE MONOCYTES (AUTO) 0.8 10^3/uL (0.1-1.4); ABSOLUTE NEUT (AUTO) 5.2 10^3/uL (1.7-8.2); BASOPHILS % (AUTO) 0.8 % (0-2); EOSINOPHILS % (AUTO) 2.6 % (0-6); HEMATOCRIT 38.1 % (37.9-51.0); HEMOGLOBIN 13.3 g/dL (13.5-17.0); MEAN CORPUSCULAR HEMOGLOBIN 30.2 pg (27.0-33.4); MEAN CORPUSCULAR HGB CONC 34.8 g/dL (32.0-36.0); MEAN CORPUSCULAR VOLUME 87 fl (80-97); MONOCYTES % (AUTO) 8.9 % (3-13); PLATELET COUNT 276 10^3/uL (150-450); RED BLOOD COUNT 4.39 10^6/uL (4.35-5.55); SEGMENTED NEUTROPHILS % (AUTO) 58.7 % (42-78); TOTAL CELLS COUNTED % (AUTO) 100 %; WHITE BLOOD COUNT 8.9 10^3/uL (4.0-10.5)
[2017-09-26 06:34] LABS: ANION GAP 9 (5-19); BLOOD UREA NITROGEN 10 mg/dL (7-20); CALCIUM 8.6 mg/dL (8.4-10.2); CARBON DIOXIDE 28 mmol/L (22-30); CHLORIDE 105 mmol/L (98-107); GLUCOSE 92 mg/dL (75-110); POTASSIUM 4.1 mmol/L (3.6-5.0); SODIUM 141.9 mmol/L (137-145)
[2017-09-26] MEDS ORDERED: VANCOMYCIN HCL 1,250 MG in DEXTROSE 5%-WATER 250 ML IV ONE (10:30)
[2017-09-26] MEDS: DOCUSATE SODIUM 100 MG CAPSULE PO SCH ×2 (10:34→17:15)
[2017-09-26] MEDS: FAMOTIDINE 20 MG TABLET PO SCH ×2 (10:34→17:16)
[2017-09-26] MEDS ORDERED: LIDOCAINE 0.5% INJ-PF (5 MG/ML) 50 ML SDV ONE (13:18)
[2017-09-26] MEDS ORDERED: MIDAZOLAM 2 MG/2 ML INJ ONE ×2 (13:43→14:05)
[2017-09-26] MEDS ORDERED: PROPOFOL INJ 200 MG/20 ML VIAL IV ONE (13:43)
[2017-09-26] MEDS ORDERED: HYDROMORPHONE HCL INJ/PF 2 MG/ML AMPULE ONE (13:43)
[2017-09-26] MEDS ORDERED: ONDANSETRON HCL INJ/PF 4 MG/2 ML SDV IV PRN (14:22)
[2017-09-26] MEDS ORDERED: DIPHENHYDRAMINE HCL 50 MG/ML VIAL IV PRN (14:22)
[2017-09-26] MEDS ORDERED: FENTANYL CITRATE INJ/PF 100 MCG/2 ML AMPUL IV PRN ×3 (14:22)
[2017-09-26] MEDS: FENTANYL CITRATE INJ/PF 100 MCG/2 ML AMPUL ONE ×2 (14:53→15:12)
[2017-09-26] MEDS ORDERED: LORAZEPAM INJ 2 MG/1 ML VIAL ONE (14:53)
[2017-09-26] MEDS ORDERED: NORMAL SALINE 1000 ML 1,000 ML IV PRN (15:08)
--- NOTE | 2017-09-26 15:36 | OPERATIVE REPORT E ---
Operative Report NAME: NAVEEN MCCORMICK : 1990 AGE: 26Y DATE OF SURGERY: 09/26/2017 ROOM: 404 PREOPERATIVE DIAGNOSIS: ABSCESS OF THE RIGHT NECK. POSTOPERATIVE DIAGNOSIS: ABSCESS OF THE RIGHT NECK. OPERATION: Incision, drainage and packing of abscess, right neck. SURGEON: RUPERTO QUIROGA M.D. ANESTHESIA: General. INDICATION: This is a 36-year-old male who noted a gradually enlarging painful mass from the right neck. It appears this was drained by Dr. Salazar yesterday in the emergency room, but Dr. Salazar feels that he did not go all the way down further, because patient unable to tolerate it. Patient is being taken to the OR for a more formal incision and drainage of right neck abscess. PROCEDURE: After adequate general anesthesia, patient was placed in supine position, with the right neck extended. This was then prepped and draped in the usual sterile fashion. The previous incision and drainage was then probed, and a small amount of pus was extruded out. Cultures were then obtained. With the use of finger dissection, any collection or pocket was bluntly broken down. No other areas of abscess around the cavity measuring 6 x 1.5 cm wide x 1 cm deep. There was still some induration above the area of the incision and drainage, but no abscess noted. Following this, the area was then pulse-lavaged with a liter of saline. Adequate hemostasis was noted. The area was then subsequently packed with quarter-inch Iodoform gauze using at least 3/4 of the bottle. Next, sterile 4 x 4's were placed over the incision site and adhesive placed over the 4 x 4's. Patient tolerated procedure well. Needle, instrument and sponge counts were correct. Estimated blood loss was about 10 mL. Patient brought to recovery in satisfactory condition. DICTATING PHYSICIAN: RUPERTO QUIROGA M.D. [id number] PHY#: [id number] ID: [id number] JOB#: [id number] ACCT: [id number] cc:RUPERTO QUIROGA M.D. >
[2017-09-26] MEDS: VANCOMYCIN HCL 1,250 MG in DEXTROSE 5%-WATER 250 ML IV SCH ×2 (16:10→21:23)
[2017-09-26] MEDS: HYDROMORPHONE HCL INJ/PF 2 MG/ML AMPULE IV PRN ×2 (16:18→20:45)
[2017-09-26] MEDS: OXYCODONE-ACETAMINOPHEN 5-325 MG TABLET PO PRN ×2 (17:25→23:50)
[2017-09-26] MEDS ORDERED: NICOTINE 14 MG/24 HR PATCH.TD24 TD ONE (21:30)
[2017-09-26 21:49] LABS: VANCOMYCIN,TROUGH 5.9 ug/mL (5.0-20.0)
[2017-09-26] MEDS: ALPRAZOLAM 0.5 MG TABLET PO PRN (22:20)
[2017-09-27] MEDS: VANCOMYCIN HCL 1,250 MG in DEXTROSE 5%-WATER 250 ML IV SCH ×3 (02:23→15:29)
[2017-09-27] MEDS: KETOROLAC TROMETHAMINE INJ/PF 30 MG/1 ML SDV IV SCH ×2 (05:42→13:46)
[2017-09-27] MEDS: HYDROMORPHONE HCL INJ/PF 2 MG/ML AMPULE IV PRN ×2 (06:25→19:22)
[2017-09-27 06:50] LABS: ABSOLUTE BASOPHILS # (AUTO) 0.1 10^3/uL (0.0-0.2); ABSOLUTE EOSINOPHILS # (AUTO) 0.3 10^3/uL (0.0-0.6); ABSOLUTE LYMPHOCYTES (AUTO) 2.9 10^3/uL (0.5-4.7); ABSOLUTE MONOCYTES (AUTO) 0.6 10^3/uL (0.1-1.4); ABSOLUTE NEUT (AUTO) 3.9 10^3/uL (1.7-8.2); BASOPHILS % (AUTO) 0.9 % (0-2); EOSINOPHILS % (AUTO) 3.7 % (0-6); HEMATOCRIT 40.2 % (37.9-51.0); HEMOGLOBIN 13.9 g/dL (13.5-17.0); LYMPHOCYTES % (AUTO) 37.6 % (13-45); MEAN CORPUSCULAR HEMOGLOBIN 29.9 pg (27.0-33.4); MEAN CORPUSCULAR HGB CONC 34.6 g/dL (32.0-36.0); MEAN CORPUSCULAR VOLUME 86 fl (80-97); MONOCYTES % (AUTO) 8.1 % (3-13); RED BLOOD COUNT 4.65 10^6/uL (4.35-5.55); SEGMENTED NEUTROPHILS % (AUTO) 49.7 % (42-78); TOTAL CELLS COUNTED % (AUTO) 100 %; WHITE BLOOD COUNT 7.8 10^3/uL (4.0-10.5)
[2017-09-27 06:57] LABS: PLATELET COUNT 239 10^3/uL (150-450)
[2017-09-27] MEDS: FAMOTIDINE 20 MG TABLET PO SCH ×2 (09:05→17:21)
[2017-09-27] MEDS: DOCUSATE SODIUM 100 MG CAPSULE PO SCH ×2 (09:05→17:21)
[2017-09-27] MEDS: ALPRAZOLAM 0.5 MG TABLET PO PRN (09:10)
[2017-09-27] MEDS: MORPHINE SULFATE 10 MG/ML INJ IV PRN ×2 (09:11→13:46)
[2017-09-27] MEDS ORDERED: NICOTINE 14 MG/24 HR PATCH.TD24 TD SCH (10:00)
[2017-09-27 16:07] LABS: VANCOMYCIN,TROUGH 15.7 ug/mL (5.0-20.0)
[2017-09-27 20:01] VITALS: BP 115/70
--- NOTE | 2017-09-28 09:07 | DISCHARGE SUMMARY E ---
Discharge Summary NAME: NAVEEN MCCORMICK : 1990 AGE: 26Y ADMITTED: 09/25/2017 DISCHARGED: 09/27/2017 PROCEDURE DONE: I and D of right neck abscess 09/25/2017 and a formal I and D on 09/26/2017. HOSPITAL COURSE: This is a 26-year-old male with noted pains along the right neck for about a week and gradually getting worse. He went to the ED on 09/25/2017 and an I and D was done by Dr. Salazar, but unable to do a full drainage. The patient was then taken to the OR, and under general anesthesia, a more formal incision and drainage was done and the area was then packed with Iodoform gauze. His white count remained normal the day of discharge and also no evidence of further drainage. On removal of the packing, there was still some induration around the area. Wet-to-dry dressing is being placed to continue at home at least once a day. Cultures from the initial I and D showed no growth. At any rate, antibiotic in the form of Keflex was given to the patient to take 500 mg 3 times a day for about 5-7 days. Prescription for Percocet was also given for about 10 pills. The patient to be followed up at the clinic where patient can continue with further antibiotic therapy and followup. If unable to go to the public clinic, to come to our surgical clinic in about a week. DICTATING PHYSICIAN: RUPERTO QUIROGA M.D. [id number] PHY#: [id number] ID: [id number] JOB#: [id number] ACCT: [id number] cc:NO Rosana YA M.D. [facility],
== END 2017-09-27 20:00 | disposition home or self-care (01) | DRG 603 ==
LOC: ER 18:29 → EH 23:50 → 4N 09-26 02:27
PROVIDERS: ADMIT Surgery; ATTEND Surgery
PROC: 0H94XZX Drainage of Neck Skin, External Approach, Diagnostic (ICD-10-PCS; principal; 2017-09-26 13:30)
DX: L02.11 Cutaneous abscess of neck (principal); F32.9 Major depressive disorder, single episode, unspecified; F17.210 Nicotine dependence, cigarettes, uncomplicated; Z90.49 Acquired absence of other specified parts of digestive tract; Z88.8 Allergy status to other drugs, medicaments and biological substances
CPT/HCPCS: 36415; 80048; 80202; 82565; 85025; 87040; 87070; 87075; 87077; 87205; 96365; 96372; 99284; A6266; J0696; J1170; J1885; J2060; J2250; J2270; J2704; J3010; J3370; J3490; J7030; J7060